=== PATIENT | male | born 1955 | race Two or more races ===

== ENCOUNTER 2024-10-13 12:07 | Emergency (ER) | payer MEDICARE, OTHER ==
[~2024-10-13] VITALS: Ht 162.6 cm; Wt 72.6 kg
[2024-10-13 12:20] VITALS: BP 133/75; TEMP 98.5; O2SAT 99
== END 2024-10-13 13:13 | disposition home or self-care (01) ==
LOC: ER 12:29
DX: S01.81XD Laceration without foreign body of other part of head, subsequent encounter (principal); I10 Essential (primary) hypertension; E11.9 Type 2 diabetes mellitus without complications; Z48.02 Encounter for removal of sutures; Z88.0 Allergy status to penicillin; X58.XXXD Exposure to other specified factors, subsequent encounter

== ENCOUNTER 2024-11-14 13:44 | Outpatient (CLI) | payer MEDICARE, OTHER | END 2024-11-14 23:59 | disposition home or self-care (01) | LOC: WOU 13:44 | PROVIDERS: ATTEND Student in an Organized Health Care Education/Training Program | DX: E11.621 Type 2 diabetes mellitus with foot ulcer (principal); L97.522 Non-pressure chronic ulcer of other part of left foot with fat layer exposed; T87.81 Dehiscence of amputation stump; E11.40 Type 2 diabetes mellitus with diabetic neuropathy, unspecified; E11.51 Type 2 diabetes mellitus with diabetic peripheral angiopathy without gangrene; Z79.4 Long term (current) use of insulin; Z79.84 Long term (current) use of oral hypoglycemic drugs; Z79.82 Long term (current) use of aspirin; Z79.02 Long term (current) use of antithrombotics/antiplatelets | CPT/HCPCS: 11042 ==